=== PATIENT | female | born 1990 | race Caucasian/White ===

== ENCOUNTER 2019-06-03 20:22 | Emergency (ER) | payer OTHER, MEDICAID, SELFPAY ==
[2019-06-03 20:45] VITALS: BP 145/100; PULSE 124; RESP 18; TEMP 36.3; O2SAT 99; BMI 23.3
[2019-06-03 21:38] LABS: Ur Creatinine Normal (Normal); Ur Specific Gravity Normal (Normal); Urine Tetrahydrocannabinol Negative (Negative); Urine pH Normal (Normal)
[2019-06-03 21:39] LABS: UR Morphine/Opiate cutoff 300 Negative (Negative); Urine Amphetamines Negative (Negative); Urine Barbiturates Negative (Negative); Urine Benzodiazepines Negative (Negative); Urine Cocaine Negative (Negative); Urine MDMA Negative (Negative); Urine Methadone Negative (Negative); Urine Methamphetamines Negative (Negative); Urine Oxycodone Negative (Negative); Urine Phencyclidine Negative (Negative); Urine Tricyclic Antidepressant Negative (Negative)
[2019-06-03 21:43] LABS: Add Manual Diff / Slide Review NO; Basophils Absolute Auto 100 /uL (0-100); Basophils Percent Auto 0.8 % (0-2); Eosinophils Absolute Auto 0 /uL (0-450); Eosinophils Percent Auto 0.1 % (2-4); Hematocrit 40.1 % (36-46); Hemoglobin 13.9 g/dL (12.0-16.0); Lymphocytes Absolute Auto 2300 /uL (1100-4500); Lymphocytes Percent Auto 32.7 % (25-40); Mean Corpuscular HGB Conc 34.7 % (30-36); Mean Corpuscular Hemoglobin 34.8 PG (26-34); Mean Corpuscular Volume 100.1 fL (80-100); Monocytes Absolute Auto 500 /uL (0-900); Monocytes Percent Auto 7.6 % (3-14); Neutrophils Absolute Auto 4100 /uL (1500-7000); Neutrophils Percent Auto 58.8 % (50-75); Platelet Count 374 X10^3/uL (150-400); Red Blood Cell Count 4.01 X10^6/uL (4.0-5.2); Red Cell Distribution Width 13.5 % (11.6-14.8)
[2019-06-03 21:53] LABS: Alanine Aminotransferase 26 IU/L (9-52); Albumin 4.8 g/dL (3.5-5.0); Albumin Globulin Ratio 1.5 (1.0-2.8); Alkaline Phosphatase 47 U/L (38-126); Aspartate Aminotransferase 55 IU/L (14-36); BUN Creatinine Ratio 11.7 (6-22); Bilirubin Total 0.8 mg/dL (0.2-1.3); Blood Urea Nitrogen 7 mg/dL (7-17); Calcium 8.9 mg/dL (8.4-10.2); Carbon Dioxide 28 mmol/L (22-32); Chloride 101 mmol/L (98-107); Estimated Glomerular Filt Rate > 60.0 mL/min (>60); Globulin 3.2 g/dL (1.7-4.1); Glucose 98 mg/dL (70-100); HEMOLYSIS < 15 (0-50); Potassium 4.4 mmol/L (3.4-5.1); Sodium 138 mmol/L (137-145)
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
[2019-06-03 22:00] LABS: Ethanol (ETOH) 204 mg/dL
[2019-06-03 22:01] VITALS: PULSE 99; O2SAT 99
[2019-06-03 22:01] LABS: Acetaminophen < 10 ug/mL (10-30); Salicylate < 1.0 mg/dL (<20)
[2019-06-03 22:15] LABS: Free T4, Direct Thyroxine 0.82 ng/dL (0.78-2.19)
[2019-06-03 22:28] LABS: Thyroid Stimulating Hormone 5.42 uIU/mL (0.47-4.68)
--- NOTE | 2019-06-03 22:39 | DI.RAD.S_ITS ---
PROCEDURE: XR SHOULDER LT MIN 2V INDICATIONS: pain, decreased ROM TECHNIQUE: 3 views of the shoulder were acquired. COMPARISON: None. FINDINGS: Bones: No fractures or dislocations. No suspicious bony lesions. Visualized ribs appear intact. Soft tissues: No suspicious soft tissue calcifications. IMPRESSION: Normal radiographic appearance of the shoulder. Dictated by: Ciaran Matthews M.D. on 06/03/2019 at 22:03 Approved by: Ciaran Matthews M.D. on 06/03/2019 at 22:08
[2019-06-03] MEDS: LORazepam 0.5 MG TABLET 1 MG PO (23:11)
[2019-06-03] MEDS: KETOROLAC 60 MG/2 ML VIAL IM (23:12)
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
--- NOTE | 2019-06-04 01:09 | PC.NURSE ---
Nurse talking with pt in room. Door is open to hallway.
--- NOTE | 2019-06-04 01:10 | PC.NURSE ---
Nurse in room talking with pt. Door is open to [place] and lights are on.
[2019-06-04] MEDS: OLANZapine ODT 10 MG TAB PO (01:12)
--- NOTE | 2019-06-04 01:12 | PC.NURSE ---
Pt used bathroom in room, door has been re-locked and door to hallway is open and lights are off in room. Pt is drinking water.
--- NOTE | 2019-06-04 01:15 | PC.NURSE ---
pt sitting on mattress drinking water in paper cup. Door is open to hallway with lights off.
--- NOTE | 2019-06-04 02:02 | PC.NURSE ---
pt used bathroom and is now eating a sandwich and drinking water. Door is open to hallway and lights are off in .
--- NOTE | 2019-06-04 02:17 | PC.NURSE ---
pt laying down.
--- NOTE | 2019-06-04 02:37 | PC.NURSE ---
pt resting on mattress.
--- NOTE | 2019-06-04 02:48 | PC.NURSE ---
pt sleeping. Door is open to hallway
--- NOTE | 2019-06-04 03:15 | PC.NURSE ---
pt on mattress sleeping
--- NOTE | 2019-06-04 03:48 | PC.NURSE ---
pt resting, door is open to hallway.
--- NOTE | 2019-06-04 04:32 | PC.NURSE ---
Door is open to the hallway and pt is resting on mattress.
--- NOTE | 2019-06-04 05:39 | PC.NURSE ---
Lab in room for blood draw. Pt laying on bed.
--- NOTE | 2019-06-04 05:45 | PC.NURSE ---
pt sleeping, door is open to hallway and lights are off.
[2019-06-04 05:53] LABS: Ethanol (ETOH) < 10 mg/dL
--- NOTE | 2019-06-04 06:19 | PC.NURSE ---
Received medical clearance from doctor. Placed call to [facility] at this time. States will dispatch dcr.
--- NOTE | 2019-06-04 06:48 | PC.NURSE ---
Pt is sleeping
--- NOTE | 2019-06-04 07:15 | PC.NURSE ---
Pt sleeping, door is open to hallway and lights are off.
--- NOTE | 2019-06-04 07:36 | PC.NURSE ---
pt resting in room, lights are off and door open to hallway
--- NOTE | 2019-06-04 07:48 | PC.NURSE ---
pt quietly resting on bed, door is open to hallway
--- NOTE | 2019-06-04 08:00 | PC.NURSE ---
pt resting on bed, door open to hallway
--- NOTE | 2019-06-04 08:14 | PC.NURSE ---
pt cont sleeping/ dcr here to see Lorri
--- NOTE | 2019-06-04 08:15 | PC.NURSE ---
pt resting on bed door open to hallway
--- NOTE | 2019-06-04 08:16 | PC.NURSE ---
pt resting, door open to hallway
--- NOTE | 2019-06-04 08:30 | PC.NURSE ---
pt sitting on mattress speaking with DCR
--- NOTE | 2019-06-04 08:45 | PC.NURSE ---
pt sitting on mattress, offered breakfast and is eating
--- NOTE | 2019-06-04 08:56 | PC.NURSE ---
Pt used bathroom in room
--- NOTE | 2019-06-04 09:00 | PC.NURSE ---
pt sitting on mattress, offered coffee, ate breakfast, door open to hallway
--- NOTE | 2019-06-04 09:18 | PC.NURSE ---
pt resting on mattress, door open to hallway
--- NOTE | 2019-06-04 09:21 | PC.NURSE ---
pt alert. spoke with dcr, is voluntary/ is not suicidal/ [facility] will take over. poss [facility].
--- NOTE | 2019-06-04 09:30 | PC.NURSE ---
pt resting on mattress, door open to hallway
--- NOTE | 2019-06-04 09:51 | PC.NURSE ---
pt resting on mattress, door open to hallway
--- NOTE | 2019-06-04 09:53 | PC.NURSE ---
pt resting on mattress, door open to hallway
--- NOTE | 2019-06-04 10:00 | PC.NURSE ---
pt resting on mattress, lights off, door open to hallway
--- NOTE | 2019-06-04 10:19 | PC.NURSE ---
pt states getting anxious wanted some medication like last night. gave ativan, refused states that made her worse. also wants to out of room 13, states will not leave but room is making her anxious, pt moved to room 7, with blankets/ some water and doctor aware of pt wanting to see her.
--- NOTE | 2019-06-04 11:45 | PC.NURSE ---
Pt's called, pt came out of room to speak with him. Pt back in room sitting on bed
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
[2019-06-04 11:49] VITALS: BP 118/81; PULSE 68; RESP 15; O2SAT 99
--- NOTE | 2019-06-04 12:43 | PC.NURSE ---
pt states she wants anxiety medication but the lorazepam makes her more anxious. requesting different med from dr. Starr.
[2019-06-04] MEDS: ALPRAZolam 0.25 MG TABLET 0.5 MG PO (12:51)
--- NOTE | 2019-06-04 12:59 | PC.NURSE ---
Pt accepted at [facility] under Dr Ta to [facility], notified by Amber HYMAN
--- NOTE | 2019-06-04 13:06 | PC.NURSE ---
[id number]/ dcr with pt. 0800 states pt is voluntary admit, not suicidal and will speak with [facility] to admit pt, as pt would like to go there. doctor aware
== END 2019-06-04 13:45 ==
PROVIDERS: Emergency Medicine; Emergency Provider Emergency Medicine
DX: F43.10 Post-traumatic stress disorder, unspecified (principal); F32.9 Major depressive disorder, single episode, unspecified; M25.512 Pain in left shoulder
CPT/HCPCS: 36415; 73030; 80053; 80305; 80320; 80329; 81003; 81025; 84439; 84443; 85025; 96372; 99285; G0480; J1885

== ENCOUNTER 2019-07-04 17:22 | Emergency (ER) | payer OTHER, MEDICAID, SELFPAY ==
--- NOTE | 2019-07-04 17:44 | ED.ARRPALP ---
HPI - Arrhythmia/Palpitations General Chief Complaint: Arrhythmia/Palpitations Stated Complaint: Chest Pain Time Seen by Provider: 07/04/19 17:29 Source: patient, EMS and police Mode of arrival: EMS History of Present Illness HPI narrative: Patient comes emergency department complaining of anxiety and chest pain with inspiration after being arrested and told she was going to [facility]. Patient reports that it hurts to move certain directions. She states she feels nauseated currently. No fevers or chills. No cough. Patient has a history of anxiety. No swelling in her legs or pain in her calves. No injuries. No other complaints at this time. Related Data Home Medications Medication Instructions Recorded Confirmed [CAMREON GREEN] #0 05/05/17 [PHENEGREEK] #0 05/05/17 vit-iron fum-folic ac 1 cap PO QDAY #0 05/05/17 [Mynatal] Previous Rx's Medication Instructions Recorded ibuprofen 600 mg PO TIDP PRN #30 tab 11/03/16 ferrous gluconate 324 mg PO BID #60 tab 02/19/17 ibuprofen 600 mg PO Q6HP PRN #30 tab 04/15/17 Allergies Allergy/AdvReac Type Severity Reaction Status Date / Time morphine [MORPHINE] Allergy Severe Rash Verified 06/03/19 21:01 ondansetron [ONDANSETRON] AdvReac Severe Rash Verified 06/03/19 21:01 Review of Systems Constitutional Constitutional: Denies chills, Denies fatigue, Denies fever(s), Denies frequent falls, Denies lethargy and Denies weakness Eyes Eyes: Denies change in vision, Denies eye discharge, Denies irritation and Denies loss of vision ENT Ears, Nose, Mouth, and Throat: Denies change in voice, Denies dizziness, Denies neck pain, Denies sore throat and Denies throat swelling Cardiovascular Cardiovascular: Reports chest pain, Denies irregular heart rhythm, Denies lightheadedness, Denies palpitations, Denies dyspnea, Denies dyspnea on exertion and Denies orthopnea Respiratory Respiratory: Denies cough, Denies dyspnea, Denies dyspnea on exertion and Denies wheezing Gastrointestinal Gastrointestinal: Denies abdominal pain, Denies change in bowel habits, Denies diarrhea, Denies nausea and Denies vomiting Genitourinary Genitourinary: Denies hematuria, Denies flank pain, Denies urinary incontinence and Denies urinary urgency Musculoskeletal Musculoskeletal: Denies back pain, Denies muscle weakness, Denies neck pain, Denies numbness and Denies tingling Integumentary/Breasts Skin/Breast: Denies pruritus, Denies erythema, Denies rash and Denies wounds Neurologic Neurologic: Denies behavioral changes, Denies confusion, Denies dizziness, Denies frequent falls, Denies loss of vision, Denies numbness, Denies tingling and Denies weakness Psychiatric Psychiatric: Reports anxiety, Denies behavioral changes, Denies confusion, Denies depression, Denies homicidal ideation and Denies suicidal ideation Endocrine Endocrine: Denies fatigue, Denies flushing and Denies palpitations Hematologic/Lymphatic Hematologic/Lymphatic: Denies easy bruising Allergic/Immunologic Allergic/Immunologic: Denies urticaria, Denies throat swelling and Denies wheezing Patient History Medical History Anxiety (Acute) tobacco type: vaping alcohol intake frequency: 0-2 drinks per day Substance Use Type: does not use Exam Initial Vital Signs Initial Vital Signs: Vital Signs Pulse Rate 106 H 07/04/19 17:55 Respiratory Rate 18 07/04/19 17:55 Blood Pressure 141/86 H 07/04/19 17:55 Pulse Oximetry 94 07/04/19 17:55 Const General: cooperative and well developed Nutritional Appearance: well nourished Orientation: alert, awake, oriented x3 and not confused [facility] Head: normocephalic and atraumatic Ears: external ears normal Nose: external nose normal and No nasal discharge Face and sinus: face symmetric and No dry mucous membranes Mouth: oral mucosae normal and moist mucous membranes Teeth and gingiva: dentition normal Eyes General: appearance normal, both eyes and all related structures Eyelids: eyelids normal Conjunctivae: conjunctivae normal Sclera: sclerae normal Pupils: PERRL EOM: EOM intact bilaterally Neck Neck: normal visual inspection, trachea midline, No lymphadenopathy, No midline deformity and No JVD Lymphatic: No lymphedema Chest Chest: normal inspection of the chest Resp Effort & Inspection: normal respiratory effort, able to speak in complete sentences, no respiratory distress and no use of accessory muscles Auscultation: clear to auscultation bilaterally, no rales, no rhonchi and no wheezes Cardio Rate: tachycardic Rhythm: regular rhythm Heart Sounds: no click, no gallops, no murmurs and no rubs Pulses: normal peripheral pulses GI Inspection: non-distended Palpation: soft, no hepatosplenomegaly, No guarding, No pulsatile mass and No tender Back/Spine/Pelvis Back: No CVA tenderness Cervical Spine: cervical ROM normal and No pain with cervical ROM Thoracic/Lumbar Spine: thoracic and lumbar spine normal to inspection Skin General: no rashes or lesions noted, No jaundice and No petechiae Neuro General: alert, oriented x3, gait normal and no focal motor deficits Speech: speech normal Extrem General: full ROM, no clubbing, cyanosis or edema, no pedal edema and no calf tenderness Psych Appearance: disheveled Mental Status: mental status grossly normal Speech and Movement: speech and movement normal Mood: anxious mood (Patient is extremely anxious and hyperventilating.) Attitude: cooperative Thought Content: normal and suicidality Judgment: judgment good Course Course Course Narrative: The patient is very anxious in the emergency department, though when not being directly questioned, she seemed to calm down quite a bit. With calm breathing, her heart rate did come down to nearly normal. I discussed with the patient that the pain she is having sounds mechanical and most likely related to her chest wall as opposed to 1 of her vital organs. I have discussed with her that at this time, I do not find an emergent condition. I have discussed with the police that the patient is medically clear for booking. The patient and I have discussed home management of symptoms, as well as the usual indications for return. MDM - Arrhythmia/Palpitations Medical Records Attestation: I reviewed the patient's medical records. Lab Data Attestation: I reviewed the patient's lab results. ECG Data Attestation: I personally reviewed and interpreted this ECG as follows: (See below) Interpretation: Regular ventricular rhythm with a tachycardic rate LA intervals normal; P waves correlating well with QRS complex No significant ST T wave changes No ectopy Interpretation: Sinus tachycardia; no signs of acute ischemia as interpreted by ED MD. Discharge Plan Departure Patient Disposition: Home Clinical Impression: Anxiety Discharge Date/Time: 07/04/19 17:55 Instructions: DI for Anxiety -- Adult Activity Restrictions/Additional Instructions: There is no evidence of a dangerous condition involving your heart. You do not have a fever here. The pain you are having in your chest is most consistent with chest wall pain, as opposed to pain from your heart or other vital structures. There is no evidence of an emergent condition at this time, and as such, you may follow up with your primary care physician for further concerns regarding your heart. You are clear to book. Prescriptions: No Action ibuprofen 600 MG tablet 600 mg PO TIDP PRNQty: 30 RF: 1 ferrous gluconate 324 MG tablet 324 mg PO BID Qty: 60 RF: 3 ibuprofen 600 MG tablet 600 mg PO Q6HP PRNQty: 30 RF: 0 vit-iron fum-folic ac [Mynatal] 1 EACH capsule 1 cap PO QDAY Qty: 0 RF: 0 [CAMERON GREEN] Qty: 0 RF: 0 [PHENEGREEK] Qty: 0 RF: 0 Referrals: Keith Lisa MD [Primary Care Provider] -
[2019-07-04 17:55] VITALS: BP 141/86; PULSE 106; RESP 18; O2SAT 94
== END 2019-07-04 17:55 | disposition home or self-care (01) ==
PROVIDERS: Emergency Provider Emergency Medicine
DX: F41.9 Anxiety disorder, unspecified (principal); R00.0 Tachycardia, unspecified
CPT/HCPCS: 93005; 99282; 99283